=== PATIENT | female | born 1995 | race Caucasian/White ===

== ENCOUNTER 2017-05-01 02:57 | Emergency (ER) | payer SELFPAY ==
[2017-05-01 03:07] VITALS: RESP 16
[2017-05-01 03:51] LABS: HCG,QUALITATIVE URINE NEGATIVE (NEGATIVE)
[2017-05-01 03:53] LABS: SQUAMOUS EPITHIAL 7 /hpf (0-5); URINE BACTERIA RARE (<OCC); URINE BILIRUBIN NEGATIVE (NEGATIVE); URINE BLOOD NEGATIVE (NEGATIVE); URINE CLARITY Hazy (Clear); URINE COLOR Yellow (YELLOW); URINE GLUCOSE (UA) NORMAL (Normal); URINE LEUKOCYTE ESTERASE 1+ Leu/uL (Negative); URINE NITRATE NEGATIVE (NEGATIVE); URINE PROTEIN NEGATIVE (NEGATIVE); URINE UROBILINOGEN NORMAL mg/dL (0.2-1.0)
--- NOTE | 2017-05-01 04:05 | C.PDOC ---
History Of Present Illness 22 year old female with a Hx of a possible right hemorrhagic cyst last year who presents to the ER with a complaint of intermittent, nonradiating, LLQ pain since last week that has worsened today. Patient has no Hx of GC/chlamydia; she recently discovered her partner was unfaithful. Denies urinary symptoms, nausea , vomiting, fever, chills, vaginal discharge, or being sexually active.no diarrhea. last bm yesterday. pain worse last night. Time Seen by Provider: 05/01/17 03:20 Chief Complaint (Nursing): Abdominal Pain History Per: Patient History/Exam Limitations: no limitations Onset/Duration Of Symptoms: Days Current Symptoms Are (Timing): Still Present Location Of Pain/Discomfort: LLQ Radiation Of Pain To:: None Quality Of Discomfort: Unable To Describe Associated Symptoms: denies: Fever, Chills, Nausea, Vomiting, Urinary Symptoms Exacerbating Factors: None Alleviating Factors: None Recent travel outside of the [place]: No Abnormal Vaginal Bleeding: No Past Medical History Reviewed: Historical Data, Nursing Documentation, Vital Signs Vital Signs: Last Vital Signs Temp 97.9 F 05/01/17 03:03 Pulse 71 05/01/17 03:03 Resp 16 05/01/17 03:03 BP 104/68 05/01/17 03:03 Pulse Ox 98 05/01/17 06:40 - Medical History PMH: HTN (pt denies) Surgical History: Tonsillectomy Family History: States: Unknown Family Hx - Social History Hx Tobacco Use: No Hx Alcohol Use: Yes Hx Substance Use: No - Immunization History Hx Tetanus Toxoid Vaccination: No Hx Influenza Vaccination: No Hx Pneumococcal Vaccination: No Review Of Systems Constitutional: Negative for: Fever, Chills Gastrointestinal: Positive for: Abdominal Pain. Negative for: Nausea, Vomiting Genitourinary: Negative for: Vaginal Discharge Physical Exam - Physical Exam Appears: Non-toxic Skin: Normal Color, Warm, Dry Head: Atraumatic, Normacephalic Oral Mucosa: Moist Neck: Supple Chest: Symmetrical, No Tenderness Cardiovascular: Rhythm Regular, No Murmur Respiratory: Normal Breath Sounds, No Rales, No Rhonchi, No Wheezing Gastrointestinal/Abdominal: Bowel Sounds (Normal), Soft, Tenderness (left Pelvic and suprapubic) Pelvic: Normal External Exam, Vaginal Discharge (Whitish thick clumpy), Cervical Motion Tenderness, Adnexal Tenderness (left), Other (Chaperoned by Nurse Katiuska) Neurological/Psych: Oriented x3, Normal Speech, Normal Cognition ED Course And Treatment - Laboratory Results Result Diagrams: 05/01/17 04:03 05/01/17 04:03 O2 Sat by Pulse Oximetry: 98 (Room air) Pulse Ox Interpretation: Normal - CT Scan/US US Transabd Other Rad Studies (CT/US): Read By Radiologist, Radiology Report Reviewed CT/US Interpretation: EXAM: US Pelvis Complete, Transabdominal. CLINICAL HISTORY: 22 years old, female; Pain; Pelvic pain; Additional info: Left adnexal tenderness. TECHNIQUE: Real-time transabdominal pelvic ultrasound ( complete) with image documentation. COMPARISON: No relevant prior studies available. FINDINGS: Uterus/cervix: Uterus measures 9.4 x 4.8 x 6.5 cm in size. No myometrial mass. Endometrium: 0.4 cm in thickness. Right ovary: 3.2 x 2.0 x 2.8 cm in size. 1.2 x 0.9 x 1.2 cm anechoic lesion. Small follicles. Normal. flow. Left ovary: 4.3 x 2.8 x 3.2 cm in size. 2.9 x 2.0 x 2.6 cm hypoechoic lesion with internal echoes. Small follicles. Normal flow. Free fluid: No significant free fluid. Bladder: Unremarkable as visualized. IMPRESSION: 1. Probable hemorrhagic LEFT ovarian cyst. Recommend sonographic followup in 6 weeks to. ensure resolution and exclude other etiologies. 2. Simple RIGHT ovarian cyst. 3. Incidental/non-acute findings are described above. US Transvaginal Other Rad Studies (CT/US): Read By Radiologist, Radiology Report Reviewed CT/US Interpretation: EXAM: US Pelvis, Transvaginal. CLINICAL HISTORY: 22 years old, female; Pain; Pelvic pain; Additional info: Left adnexal tenderness. TECHNIQUE: Real-time transvaginal pelvic ultrasound (complete) with image documentation. Transvaginal. imaging was used for better evaluation of the endometrium and adnexa. COMPARISON: No relevant prior studies available. FINDINGS: Uterus/cervix: Uterus measures 9.4 x 4.8 x 6.5 cm in size. No myometrial mass. Endometrium: 0.4 cm in thickness. Right ovary: 3.2 x 2.0 x 2.8 cm in size. 1.2 x 0.9 x 1.2 cm anechoic lesion. Small follicles. Normal. flow. Left ovary: 4.3 x 2.8 x 3.2 cm in size. 2.9 x 2.0 x 2.6 cm hypoechoic lesion with internal echoes. Small follicles. Normal flow. Free fluid: No significant free fluid. Bladder: Empty bladder which cannot be evaluated with this probe. IMPRESSION: 1. Probable hemorrhagic LEFT ovarian cyst. Recommend sonographic followup in 6 weeks to. ensure resolution and exclude other etiologies. 2. Simple RIGHT ovarian cyst. 3. Incidental/non-acute findings are described above. Progress Note: Blood work ordered. Disposition Counseled Patient/Family Regarding: Diagnosis, Need For Followup, Rx Given - Disposition Disposition: HOME/ ROUTINE Disposition Time: 06:35 Condition: STABLE Additional Instructions: Follow up with Dr Contreras (footwear stitcher) next Tuesday as scheduled, and bring copies of sonongram results so he/she may arrange repeat sonogram in 6 weeks as recommended. Recommend sexual abstinence until test resu,lts back; if positive , both you and partner needs to be treated (you were treated in ER tonight) Take Ibuprofen for pain if needed. Return to ER for a any worse symptoms, Prescriptions: Ibuprofen [Motrin] 600 mg PO TID #30 tab Miconazole 2% Vaginal [Monistat 7 Vaginal Cream] 7 applic VG HS #1 tube Instructions: Ovarian Cyst (ED), Vulvovaginal Candidiasis (ED) Forms: General Discharge Instructions - Clinical Impression Clinical Impression: Hemorrhagic cyst of left ovary, Candidal vaginitis - Scribe Statement The provider has reviewed the documentation as recorded by the Yarieliblarisa Galaviz All medical record entries made by the Yarielibe were at my direction and personally dictated by me. I have reviewed the chart and agree that the record accurately reflects my personal performance of the history, physical exam, medical decision making, and the department course for this patient. I have also personally directed, reviewed, and agree with the discharge instructions and disposition.
[2017-05-01 04:06] LABS: BASO # 0.1 K/uL (0.0-0.2); BASO % 0.6 % (0.0-2.0); EOS # 0.1 K/uL (0.0-0.7); EOS % 1.7 % (0.0-4.0); HEMOGLOBIN 14.2 g/dL (11.0-16.0); LYMPH # 2.5 K/uL (1.0-4.3); LYMPH % 29.8 % (20.0-40.0); MEAN CELL VOLUME 88.1 fL (81.0-99.0); MEAN CORPUSCULAR HEMOGLOBIN 29.8 pg (27.0-31.0); MEAN CORPUSCULAR HGB CONC 33.8 g/dL (33.0-37.0); MEAN PLATELET VOLUME 8.6 fL (7.2-11.7); MONO # 0.9 K/uL (0.0-0.8); MONO % 11.4 % (0.0-10.0); NEUT # 4.7 K/uL (1.8-7.0); NEUT % 56.5 % (50.0-75.0); NRBC % 0.1 % (0.0-2.0); RBC 4.79 Mil/uL (3.80-5.20); RED CELL DISTRIBUTION WIDTH 12.8 % (11.5-14.5); WHITE BLOOD COUNT 8.3 K/uL (4.8-10.8)
[2017-05-01] MEDS ORDERED: cefTRIAXone (Rocephin) 250 mg Inj IM STA (04:21)
[2017-05-01 04:23] LABS: ALBUMIN 4.2 g/dL (3.5-5.0)
[2017-05-01 04:26] LABS: ALB/GLOB RATIO 1.3 (1.0-2.1); AST/SGOT 19 U/L (14-36); GFR AFRICAN-AMERICAN > 60; GFR NON-AFRICAN AMERICAN > 60
[2017-05-01 04:27] LABS: ALT/SGPT 26 U/L (9-52); BLOOD UREA NITROGEN 17 mg/dL (7-17); CALCIUM 8.8 mg/dl (8.6-10.4)
--- NOTE | 2017-05-01 06:28 | US ---
EXAM: US Pelvis Complete, Transabdominal CLINICAL HISTORY: 22 years old, female; Pain; Pelvic pain; Additional info: Left adnexal tenderness TECHNIQUE: Real-time transabdominal pelvic ultrasound (complete) with image documentation. COMPARISON: No relevant prior studies available. FINDINGS: Uterus/cervix: Uterus measures 9.4 x 4.8 x 6.5 cm in size. No myometrial mass. Endometrium: 0.4 cm in thickness. Right ovary: 3.2 x 2.0 x 2.8 cm in size. 1.2 x 0.9 x 1.2 cm anechoic lesion. Small follicles. Normal flow. Left ovary: 4.3 x 2.8 x 3.2 cm in size. 2.9 x 2.0 x 2.6 cm hypoechoic lesion with internal echoes. Small follicles. Normal flow. Free fluid: No significant free fluid. Bladder: Unremarkable as visualized. IMPRESSION: 1. Probable hemorrhagic LEFT ovarian cyst. Recommend sonographic followup in 6 weeks to ensure resolution and exclude other etiologies. 2. Simple RIGHT ovarian cyst. 3. Incidental/non-acute findings are described above. EXAM: US Pelvis, Transvaginal CLINICAL HISTORY: 22 years old, female; Pain; Pelvic pain; Additional info: Left adnexal tenderness TECHNIQUE: Real-time transvaginal pelvic ultrasound (complete) with image documentation. Transvaginal imaging was used for better evaluation of the endometrium and adnexa. COMPARISON: No relevant prior studies available. FINDINGS: Uterus/cervix: Uterus measures 9.4 x 4.8 x 6.5 cm in size. No myometrial mass. Endometrium: 0.4 cm in thickness. Right ovary: 3.2 x 2.0 x 2.8 cm in size. 1.2 x 0.9 x 1.2 cm anechoic lesion. Small follicles. Normal flow. Left ovary: 4.3 x 2.8 x 3.2 cm in size. 2.9 x 2.0 x 2.6 cm hypoechoic lesion with internal echoes. Small follicles. Normal flow. Free fluid: No significant free fluid. Bladder: Empty bladder which cannot be evaluated with this probe.
[2017-05-01 06:52] VITALS: BP 103/64; PULSE 63; TEMP 98; O2SAT 99
== END 2017-05-01 06:50 | disposition home or self-care (01) ==
LOC: C.ER 02:57
DX: B37.3 Candidiasis of vulva and vagina (principal); N83.202 Unspecified ovarian cyst, left side
CPT/HCPCS: 76830; 76856; 80053; 81001; 84703; 85025; 87491; 87591; 96372; 96374; 99284; J0696; J1885